=== PATIENT | female | born 1985 | race Two or more races ===

== ENCOUNTER 2019-10-16 13:50 | Emergency (ER) | payer OTHER ==
[~2019-10-16] VITALS: Ht 177.8 cm; Wt 78.2 kg
[2019-10-16] MEDS ORDERED: FLUORESCEIN OPHTHALMIC 1 MG STRIP ONE (14:07)
[2019-10-16] MEDS ORDERED: PROPARACAINE OPHTH 0.5%, 15ML ONE (14:07)
[2019-10-16] MEDS ORDERED: ERYTHROMYCIN OPHTH 0.5%, 1GM EACHEYE ONE ×2 (14:30→16:00)
[2019-10-16] MEDS ORDERED: HYDROcodone/APAP 10/325 MG TABLET ONE (14:53)
[2019-10-16] MEDS ORDERED: HYDROcodone/APAP 10/325 MG TABLET PO ONE (15:00)
[2019-10-16] MEDS ORDERED: ACETAMINOPHEN 500 MG TABLET ONE (15:34)
[2019-10-16 15:58] VITALS: BP 128/82
== END 2019-10-16 16:01 | disposition home or self-care (01) ==
LOC: ED 14:59
DX: H18.823 Corneal disorder due to contact lens, bilateral (principal)
CPT/HCPCS: 99283

== ENCOUNTER 2020-07-21 12:18 | Day surgery (SDC) | payer OTHER ==
[~2020-07-21] VITALS: Ht 177.8 cm; Wt 84.9 kg
[2020-07-21 12:41] VITALS: BP 111/75
[2020-07-21] MEDS ORDERED: CHLORHEXIDINE 15 ML UDC ONE (12:53)
[2020-07-21] MEDS ORDERED: LACTATED RINGERS 1,000 ML IV SCH (13:00)
[2020-07-21] MEDS ORDERED: CHLORHEXIDINE 15 ML UDC MM ONE (13:00)
[2020-07-21 13:10] LABS: BASOPHILS % (AUTO) 3 % (0-1); EOSINOPHILS % (AUTO) 2 % (1-7); LYMPHOCYTES % (AUTO) 40 % (22-44); MEAN CORPUSCULAR HEMOGLOBIN 28.6 pg (27.0-34.8); MEAN CORPUSCULAR HGB CONC 32.9 g/dL (32.4-35.8); MEAN PLATELET VOLUME 7.5 fL (7.4-10.4); MONOCYTES % (AUTO) 8 % (2-9); NEUTROPHILS % (AUTO) 47 % (42-75); PLATELET COUNT 575 x10^3/uL (130-400); RED BLOOD COUNT 4.59 x10^6/uL (3.82-5.3); RED CELL DISTRIBUTION WIDTH 18.7 % (9.6-15.2)
[2020-07-21] MEDS ORDERED: DOXY100T PO (13:18)
[2020-07-21 13:28] LABS: MD SCAN
[2020-07-21] MEDS ORDERED: MIDAZOLAM 1 MG/ML, 2ML ONE (13:43)
[2020-07-21] MEDS ORDERED: FENTANYL PF 100 MCG/2ML ONE (13:44)
[2020-07-21] MEDS ORDERED: PROPOFOL 10 MG/ML, 20ML ONE (15:04)
[2020-07-21] MEDS ORDERED: ONDANSETRON 2MG/ML, 2ML ONE (15:04)
[2020-07-21] MEDS ORDERED: DEXAMETHASONE 4 MG/ML, 1ML ONE (15:04)
[2020-07-21] MEDS ORDERED: FENTANYL PF 100 MCG/2ML IV PRN (15:30)
[2020-07-21] MEDS ORDERED: DIPHENHYDRAMINE 50 MG/ML, 1ML IVPush PRN (15:30)
[2020-07-21] MEDS ORDERED: DIAZEPAM 5 MG/ML, 2ML IVPush PRN (15:30)
[2020-07-21] MEDS ORDERED: ALBUTEROL SULFATE 2.5 MG/3 ML NPPB PRN (15:30)
[2020-07-21] MEDS ORDERED: ONDANSETRON 2MG/ML, 2ML IVPush PRN (15:30)
[2020-07-21] MEDS ORDERED: PROMETHAZINE 12.5 MG SUPP PR PRN (15:30)
[2020-07-21] MEDS ORDERED: EPHEDRINE 50 MG/ML, 1ML IVPush PRN (15:30)
[2020-07-21] MEDS ORDERED: OXYcodone 5 MG/5 ML ORAL.SOL UDC PO PRN (15:30)
[2020-07-21] MEDS ORDERED: LABETALOL 5MG/ML, 20ML IV PRN (15:30)
[2020-07-21] MEDS ORDERED: MIDAZOLAM 1 MG/ML, 2ML IV PRN (15:30)
[2020-07-21] MEDS ORDERED: hydrALAzine 20 MG/ML, 1ML IV PRN (15:30)
[2020-07-21] MEDS ORDERED: HYDROmorphone 1 MG/ML, 1ML INJ IVPush PRN (15:30)
[2020-07-21] MEDS ORDERED: ACETAMINOPHEN 325 MG TABLET PO PRN (15:30)
[2020-07-21] MEDS ORDERED: MEPERIDINE/PF 25MG/0.5ML IVPush PRN (15:30)
[2020-07-21] MEDS ORDERED: BUPIVACAINE/PF 0.25% INFIL ONE (15:30)
[2020-07-21] MEDS ORDERED: PROMETHAZINE 25 MG/ML, 1ML IVPush PRN (15:30)
[2020-07-21] MEDS ORDERED: SILVER NITRATE STICK TP ONE (15:33)
[2020-07-21] MEDS ORDERED: EPINEPHRINE 1 MG/ML, 1ML ONE (16:04)
[2020-07-21] MEDS ORDERED: BUPIVACAINE/PF 0.25% ONE (16:04)
== END 2020-07-21 17:15 | disposition home or self-care (01) ==
LOC: OUT 12:18
PROVIDERS: ATTEND Obstetrics & Gynecology
DX: O36.4XX0 Maternal care for intrauterine death, not applicable or unspecified (principal); Z20.822 Contact with and (suspected) exposure to COVID-19; Z3A.10 10 weeks gestation of pregnancy; Z90.81 Acquired absence of spleen
CPT/HCPCS: 36415; 59820; 85025; 86850; 86900; 87635; 88305; J0171; J2250; J3010; J7120; J1100; J2405; J2704